=== PATIENT | female | born 1945 | race Caucasian/White ===

== ENCOUNTER 2020-05-29 15:37 | Outpatient (CLI) | payer MEDICARE, SELFPAY ==
--- NOTE | 2020-05-29 15:45 | MM_ITS ---
WS: [id number] BILATERAL DIGITAL SCREENING MAMMOGRAPHY WITH CAD CLINICAL INFORMATION: SCREEN HISTORY: Screening mammogram. No current complaints. COMPARISON: TECHNIQUE: Bilateral CC and MLO views. FINDINGS: Scattered fibroglandular densities bilaterally. No suspicious focal mass, asymmetry, calcifications, or architectural distortion. No evidence of malignancy. Punctate,lucent centered, and egg shell calci fications are stable. Stable 6 mm ovoid nodule outer left breast unchanged. MM/[place] [id number] IMPRESSION: BI-RADS: 2-Benign FOLLOW UP: 1 Year Follow-up Recommend return to annual screening mammography.
--- NOTE | 2020-05-29 16:22 | XR_ITS ---
WS: [id number] DEXA (DUAL ENERGY X-RAY ABSORPTIOMETRY) Bone mineral density was performed using a Expanite machine. HISTORY: POSTMENOPAUSAL COMPARISON: 05/24/2018 Lumbar spine BMD (L1-L4): 1.171 g/cm2 T score: -0.1 Z score: 1.5 Total hip BMD: Left: 0.748 g/cm2. T score: -2.1 Z score: -0.5 Right: 0.883 g/cm2. T score: -1.0 Z score: 0.6 10 year probability of a major osteoporotic fracture is 22%. Compared to the prior study from 05/24/2018. Lumbar spine bone mineral density has increased by 1.9%. Bilateral hips bone mineral density has decreased by 6.1%. XR/XR DEXA axial skeleton* [id number] IMPRESSION: Osteopenia based upon the WHO classification for females. Significant decrease in bone mineral density in the hips since the prior study.
== END 2020-05-29 15:38 | disposition home or self-care (01) ==
PROVIDERS: PCP Physician Assistant; Visit Provider Physician Assistant
DX: Z12.31 Encounter for screening mammogram for malignant neoplasm of breast (principal); Z78.0 Asymptomatic menopausal state
CPT/HCPCS: 77067; 77080

== ENCOUNTER 2024-05-18 13:49 | Outpatient (CLI) | payer MEDICARE, SELFPAY ==
--- NOTE | 2024-05-18 13:54 | CT_ITS ---
WS: [id number] CT HEAD TECHNIQUE: Noncontrast CT of the head obtained from the skullbase to the vertex. CLINICAL INFORMATION: INJURY OF HEAD COMPARISON: 2018 DLP: 1688.[address] scans at [facility] use at least one of these dose optimization techniques: automated e xposure control; mA and/or kV adjustment per patient size (includes targeted exams where dose is matc hed to clinical indication); or iterative reconstruction. FINDINGS: No evidence of intracranial hemorrhage or mass effect. Ventricular system and basal cisterns are butcher nt. Mild small vessel changes with moderate parenchymal volume loss worse in the frontal lobes. No ex tra-axial fluid collections. No evidence of mass or mass effect. Paranasal sinuses and mastoid air cells are well aerated. .Normal visualized soft tissues. CT/CT head wo con* [id number] IMPRESSION: 1. No evidence of intracranial hemorrhage or mass effect. 2. Mild small vessel changes with moderate parenchymal volume loss worse in th e frontal lobes. 3. No acute intracranial findings.
--- NOTE | 2024-05-18 13:54 | CT_ITS ---
WS: [id number] CT FACIAL BONES TECHNIQUE: Noncontrast facial bones with coronal and sagittal reformatted images. CLINICAL INFORMATION: INJURY OF HEAD COMPARISON: None. DLP: 1688.[address] scans at [facility] use at least one of these dose optimization techniques: automated e xposure control; mA and/or kV adjustment per patient size (includes targeted exams where dose is matc hed to clinical indication); or iterative reconstruction. FINDINGS: Paranasal sinuses are well aerated. Mucosal thickening in the ethmoid air cells. Small calcified oste carmen in the anterior LEFT ethmoid air cells. Soft tissue induration and hematoma involving the RIGHT f acial subcutaneous fat. Zygoma appear intact. Anterior nasal bones are normal. Normal pterygoid plate s. No evidence of mandibular fracture or dislocation. Mild central canal stenosis in the upper cervic al spine with disc osteophyte complex at C3-C4 with slight contact of the cervical cord. Slight anter olisthesis C4 on C5 and C5 on C6. Normal posterior nasopharynx. Lateral orbits are normal in appearance. No acute orbital fractures. No rmal lamina papyracea. CT/CT facial bones wo con* [id number] IMPRESSION: 1. No acute facial fractures. 2. Soft tissue contusion RIGHT facial subcutaneous fat. 3. Spondylitic changes cervical spine with mild central canal stenosis C3-C4 w ith disc osteophyte complex and slight contact of the cervical cord. This could be further evaluated with MRI cervical spine or CT.
== END 2024-05-18 13:50 | disposition home or self-care (01) ==
LOC: RAD 13:51
PROVIDERS: PCP Physician Assistant; Visit Provider Physician Assistant
DX: S00.83XA Contusion of other part of head, initial encounter (principal); X58.XXXA Exposure to other specified factors, initial encounter; G31.89 Other specified degenerative diseases of nervous system; M47.812 Spondylosis without myelopathy or radiculopathy, cervical region; M25.78 Osteophyte, vertebrae
CPT/HCPCS: 70450; 70486

== ENCOUNTER 2024-10-19 14:56 | Observation (INO) | payer MEDICARE, SELFPAY ==
[2024-10-19] VITALS (17 sets, daily range): BP systolic 113–154; BP diastolic 49–92; PULSE 80–87; RESP 16–18; TEMP 36.2–37.1; O2SAT 92–98; BMI 33.8; BMI 34.9
--- NOTE | 2024-10-19 14:58 | XR_ITS ---
WS: [id number] Portable AP upright chest, 10/19/2024 Clinical Data: weakness Comparison: PA chest, 07/04/2018 Findings: There are minimal patchy opacities in the lower lobes, more on the left than the right which probably represent atelectasis rather than pneumonia. No nodules, masses or effusions are seen. The heart is normal. The pulmonary vascularity is not increased. No pneumonia or pneumothorax is seen. The aortic arch and descending thoracic aorta show calcification and tortuosity. There is deformity of the right humeral head probably from old trauma. XR/XR chest 1V portable [id number] Impression: 1. Patchy opacities in both lower lobes which probably represents atelectasis r ather than pneumonia. 2. Atherosclerosis.
--- NOTE | 2024-10-19 15:14 | ECG_ITS ---
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 Measurements Intervals [place] Rate: 84 P: 53 ME: 159 QRS: -44 QRSD: 149 T: 17 QT: 409 QTc: 486 Interpretive Statements SINUS RHYTHM POSSIBLE LEFT ATRIAL ENLARGEMENT [-0.1mV P-WAVE IN V1/V2] LEFT AXIS DEVIATION [QRS AXIS < -30] RIGHT BUNDLE BRANCH BLOCK [120+ ms QRS DURATION, UPRIGHT V1, 40+ ms S IN I/aVL/V4/V5/V6] POSSIBLE LEFT VENTRICULAR HYPERTROPHY [VOLTAGE CRITERIA PLUS LAE OR QRS WIDENING] POSSIBLE SEPTAL MYOCARDIAL INFARCTION , PROBABLY OLD [30 ms Q WAVE IN V1/V2] Compared to ECG 07/04/2018 14:10:05 Myocardial infarct finding now present ST (T wave) deviation no longer present Electronically Signed On 10-21-2024 07:51:44 MATERNAL FETAL PHYSICIAN by Manas Gardner M.D. [id number] [id number]
[2024-10-19 15:23] LABS: Glucose Point of Care 263 mg/dL (70-110)
--- NOTE | 2024-10-19 16:19 | W.ED.RECABL ---
HPI - Recheck/Abnormal Lab/Rx General: Chief Complaint: Recheck/Abnormal Lab/Rx Stated Complaint: polo ramirez sent, weakness, shakes Time Seen by Provider: 10/19/24 16:04 Source: patient Mode of arrival: ambulatory Limitations: no limitations History of Present Illness: 79-year-old female states she has been having generalized fatigue and feeling quite weak really over the last couple weeks. States has been worse over the last few days she is concerned that she may be getting anemic she is sent here by her PCP patient is a diabetic she denies any pain anywhere denies any fevers. Related Data Home Medications ?Medication ?Instructions ?Recorded ?Confirmed amlodipine 5 mg tablet 5 mg PO DAILY 10/19/24 10/19/24 aripiprazole 2 mg tablet 2 mg PO DAILY 10/19/24 10/19/24 buspirone 30 mg tablet 30 mg PO BID 10/19/24 10/19/24 escitalopram oxalate 20 mg tablet 20 mg PO DAILY 10/19/24 10/19/24 furosemide 40 mg tablet 40 mg PO DAILY 10/19/24 10/19/24 gabapentin 300 mg capsule 300 mg PO BID 10/19/24 10/19/24 glipizide 5 mg tablet, extended 5 mg PO DAILY 10/19/24 10/19/24 release 24 hr levothyroxine 75 mcg tablet 75 mcg PO DAILY 10/19/24 10/19/24 lisinopril 20 1 tab PO DAILY 10/19/24 10/19/24 mg-hydrochlorothiazide 12.5 mg tablet omeprazole 20 mg capsule,delayed 20 mg PO DAILY 10/19/24 10/19/24 release potassium chloride 10 mEq 10 meq PO DAILY 10/19/24 10/19/24 tablet,extended release rosuvastatin 20 mg tablet 20 mg PO DAILY 10/19/24 10/19/24 trazodone 50 mg tablet 50 mg PO BEDTIME 10/19/24 10/19/24 Allergies Allergy/AdvReac Type Severity Reaction Status Date / Time codeine Allergy Unknown Unknown Verified 10/19/24 15:23 Penicillins Allergy Unknown Unknown Verified 10/19/24 15:23 Review of Systems Const: Reports: fatigue and malaise; Denies: fever(s), chills, body aches or change in appetite ENMT: Denies: throat pain or dental pain Card: Denies: chest pain Resp: Denies: dyspnea GI: Denies: abdominal pain, nausea, vomiting or diarrhea : Denies: dysuria Musc: Denies: neck pain or back pain Skin/Breast: Denies: rash Neuro: Denies: headache(s) Physical Exam Const: COMMON NORMALS: patient oriented x3 HENMT: COMMON NORMALS: normocephalic and atraumatic HEAD & SCALP: normocephalic and atraumatic Eye: COMMON NORMALS: Equal, round and reactive pupils present and EOMs intact bilaterally PUPIL: Yes Equal, round and reactive pupils present Neck/C-Spine: COMMON NORMALS: full ROM and supple Chest: COMMONS NORMALS: normal inspection of the chest and normal palpation of entire chest wall Resp: COMMON NORMALS: normal respiratory effort, No retractions, No use of accessory muscles and clear to auscultation bilaterally AUSCULTATION: clear to auscultation bilaterally Cardio: COMMON NORMALS: regular rate, regular rhythm and No murmurs present (Cardio) RATE: regular rate RHYTHM: regular rhythm GI: COMMON NORMALS: Normal to inspection, nondistended, normoactive bowel sounds present, Soft to palpation, non-tender and no masses PALPATION: Yes Soft to palpation Extremity: COMMON NORMALS: normal to inspection and full ROM Neuro: COMMON NORMALS: patient oriented x3, moves all extremities and no focal motor deficits Psych: COMMON NORMALS: mental status grossly normal, Normal thought process present and cooperative THOUGHT PROCESS: Normal thought process present Skin: COMMON NORMALS: no rashes or lesions noted and no wounds GENERAL SKIN EXAM: no rashes or lesions noted Course Vital Signs: Vital signs: Vital Signs Temperature 97.9 F 10/19/24 15:09 Pulse Rate 82 10/19/24 15:09 Blood Pressure 128/59 10/19/24 15:09 Pulse Oximetry 95 10/19/24 15:09 Oxygen Delivery Me thod Room Air 10/19/24 15:09 MDM - Recheck/Abnormal Lab/Rx Medical Decision Making Patient presents here with generalized weakness she is found to be anemic hemoglobin is 5.2 likely an iron deficiency anemia I am transfusing her spoke to the hospitalist will admit at this time. Medical Records I reviewed the patient's medical records. Lab Data I reviewed the patient's lab results. 10/19/24 16:19 10/19/24 17:02 Radiology Impressions Chest X-Ray 10/19/24 14:58 Impression: 1. Patchy opacities in both lower lobes which probably represents atelectasis rather than pneumonia. 2. Atherosclerosis. Laboratory Results WBC 9.73 10^3/uL (3.29-11.43) 10/19/24 16:19 RBC 2.93 10^6/uL (3.85-5.65) L 10/19/24 16:19 Hgb 5.20 g/dL (11.27-16.99) L* 10/19/24 16:19 Hct 20.8 % (36-47) L* 10/19/24 16:19 MCV 71.0 fl (85-98) L 10/19/24 16:19 MCH 17.7 pg (27-33) L 10/19/24 16:19 MCHC 25.0 g/dL (30-55) L 10/19/24 16:19 RDW 22.0 % (12.1-15.1) H 10/19/24 16:19 Plt Count 453 10^3/cmm (157-399) H 10/19/24 16:19 MPV 10.7 fL (7.4-10.4) H 10/19/24 16:19 Neut % (Auto) 68.3 % 10/19/24 16:19 Lymph % (Auto) 19.3 % 10/19/24 16:19 [place] % (Auto) 8.2 % 10/19/24 16:19 Eos % (Auto) 3.0 % 10/19/24 16:19 Baso % (Auto) 0.6 % 10/19/24 16:19 Neut # (Auto) 6.64 10^3/uL (1.8-7.7) 10/19/24 16:19 Lymph # (Auto) 1.9 10^3/uL (0.8-4.8) 10/19/24 16:19 [place] # (Auto) 0.8 10^3/uL (0.2-0.9) 10/19/24 16:19 Eos # (Auto) 0.3 10^3/uL (0.0-0.8) 10/19/24 16:19 Baso # (Auto) 0.1 10^3/uL (0.0-0.1) 10/19/24 16:19 Nucleated RBC % (auto) 0.6 % 10/19/24 16:19 Nucleated RBCs # 0.1 /100WBC 10/19/24 16:19 Sodium 130 mmol/L (136-145) L 10/19/24 17:02 Potassium 3.9 mmol/L (3.5-5.1) 10/19/24 17:02 Chloride 93 mmol/L (98-107) L 10/19/24 17:02 Carbon Dioxide 25 mmol/L (22-29) 10/19/24 17:02 Anion Gap 15.9 (5-19) 10/19/24 17:02 BUN 20 mg/dL (8-23) 10/19/24 17:02 Creatinine 0.8 mg/dL (0.5-0.9) 10/19/24 17:02 GFR Calculation Not Reportable 10/19/24 17:02 Glucose 214 mg/dL (65-115) H 10/19/24 17:02 POC Glucose 263 mg/dL (70-110) H 10/19/24 15:21 Calculated Osmolality 279 mOsm/kg (285-295) L 10/19/24 17:02 Calcium 9.1 mg/dL (8.5-10.5) 10/19/24 17:02 Magnesium 1.8 mg/dL (1.7-2.3) 10/19/24 17:02 Iron 16 ug/dL (37-145) L 10/19/24 17:02 TIBC 389 mcg/dl 10/19/24 17:02 % Saturation 4.1 % (20-50) L 10/19/24 17:02 Unsat Iron Binding 373 ug/dL (112-347) H 10/19/24 17:02 Total Bilirubin 0.5 mg/dL (0.15-1.2) 10/19/24 17:02 AST 18 U/L (0-32) 10/19/24 17:02 ALT 6 U/L (0-33) 10/19/24 17:02 Alkaline Phosphatase 83 U/L (35-105) 10/19/24 17:02 Total Protein 7.4 g/dL (6.6-8.7) 10/19/24 17:02 Albumin 3.5 g/dL (3.5-5.2) 10/19/24 17:02 Globulin 3.9 g/dL (1.3-4.6) 10/19/24 17:02 TSH 1.32 uIU/mL (0.27-4.20) 10/19/24 17:02 All radiology interpretation(s) finalized by discharge EKG Data EKG 1: I personally reviewed and interpreted this EKG as follows: EKG interpretation date: 10/19/24 EKG interpretation time: 15:14 Interpretation: nsr hr [address] elevation qrs 149 qtc 450 Discharge Plan Discharge Condition: Stable Prescriptions: No Action furosemide 40 mg tablet 40 mg PO DAILY trazodone 50 mg tablet 50 mg PO BEDTIME lisinopril-hydrochlorothiazide 20-12.5 mg tablet 1 tab PO DAILY glipizide 5 mg tablet extended release 24hr 5 mg PO DAILY potassium chloride 10 mEq tablet extended release 10 meq PO DAILY amlodipine 5 mg tablet 5 mg PO DAILY levothyroxine 75 mcg tablet 75 mcg PO DAILY buspirone 30 mg tablet 30 mg PO BID gabapentin 300 mg capsule 300 mg PO BID omeprazole 20 mg capsule,delayed release(DR/EC) 20 mg PO DAILY escitalopram oxalate 20 mg tablet 20 mg PO DAILY rosuvastatin 20 mg tablet 20 mg PO DAILY aripiprazole 2 mg tablet 2 mg PO DAILY Referrals: Polo Ramirez PA [Primary Care Provider] - Print Language: Dominican Coding Level of Care Code ED Speeder Hand for Darwin Jones
[2024-10-19 16:27] LABS: Basophils # 0.1 10^3/uL (0.0-0.1); Basophils % 0.6 %; Eosinophils # 0.3 10^3/uL (0.0-0.8); Lymphocytes # 1.9 10^3/uL (0.8-4.8); Lymphocytes % 19.3 %; Mean Corpuscular Hemoglobin 17.7 pg (27-33); Mean Platelet Volume 10.7 fL (7.4-10.4); Monocytes # 0.8 10^3/uL (0.2-0.9); Monocytes % 8.2 %; Neutrophils # 6.64 10^3/uL (1.8-7.7); Neutrophils % 68.3 %; Nucleated Red Blood Cells # 0.1 /100WBC; Nucleated Red Blood Cells % 0.6 %; Platelet Count 453 10^3/cmm (157-399); Red Blood Count 2.93 10^6/uL (3.85-5.65); White Blood Count 9.73 10^3/uL (3.29-11.43)
[2024-10-19 16:45] LABS: Hematocrit 20.8 % (36-47)
[2024-10-19 18:16] LABS: Alanine Aminotransferase 6 U/L (0-33); Albumin Level 3.5 g/dL (3.5-5.2); Alkaline Phosphatase 83 U/L (35-105); Anion Gap 15.9 (5-19); Aspartate Amino Transferase 18 U/L (0-32); Blood Urea Nitrogen 20 mg/dL (8-23); Calcium 9.1 mg/dL (8.5-10.5); Carbon Dioxide 25 mmol/L (22-29); Chloride 93 mmol/L (98-107); Creatinine Clr Calc Pharmacy 55.9546; Globulin 3.9 g/dL (1.3-4.6); Glucose 214 mg/dL (65-115); Iron 16 ug/dL (37-145); Magnesium 1.8 mg/dL (1.7-2.3); Osmolality Calculated 279 mOsm/kg (285-295); Percent Saturation 4.1 % (20-50); Potassium 3.9 mmol/L (3.5-5.1); Sodium 130 mmol/L (136-145); Thyroid Stimulating Hormone 1.32 uIU/mL (0.27-4.20); Total Bilirubin 0.5 mg/dL (0.15-1.2); Total Iron Binding Capacity 389 mcg/dl; Total Protein 7.4 g/dL (6.6-8.7); Unsaturated Iron Binding 373 ug/dL (112-347)
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
[2024-10-19 19:18] LABS: Influenza A NEGATIVE (Negative); Influenza B NEGATIVE (Negative); Respiratory Syncytial Virus Ce NEGATIVE (Negative); SARS-CoV-2 PCR NEGATIVE (Negative)
[2024-10-19 19:26] LABS: Ferritin 8 ng/mL (15-150)
[2024-10-19 19:44] LABS: Bilirubin Urine Negative (Negative); Blood Urine Negative (Negative); Glucose Urine UA Negative (Normal); Ketones Urine Negative (Negative); Leukocyte Esterase Urine Negative (Negative); Nitrate Urine Negative (Negative); Protein Urine Trace (Negative); Specific Gravity, Urine 1.004 (1.005-1.030); Urine Appearance Clear (CLEAR); Urine Color Yellow (Yellow); pH Urine 6.5 (5-7)
[2024-10-19 20:15] LABS: Add Urine Microscopic? YES; Squamous Epithelial Cell Urine 0-4 /hpf (0-5)
[2024-10-19] MEDS: trazodone 50 mg Tablet PO (22:05)
[2024-10-19] MEDS: efferdent effervescent 1 EACH DENTAL (22:05)
[2024-10-19] MEDS: pantoprazole DR 40 mg Tablet PO (22:05)
[2024-10-20 03:29] VITALS: BP 124/89; PULSE 84; RESP 17; TEMP 37; O2SAT 94
[2024-10-20 05:01] LABS: Basophils # 0.1 10^3/uL (0.0-0.1); Basophils % 0.9 %; Eosinophils # 0.5 10^3/uL (0.0-0.8); Eosinophils % 5.8 %; Hematocrit 27.1 % (36-47); Lymphocytes # 1.6 10^3/uL (0.8-4.8); Lymphocytes % 19.2 %; Mean Corpuscular HGB Conc 27.7 g/dL (30-55); Mean Corpuscular Hemoglobin 20.8 pg (27-33); Mean Corpuscular Volume 75.3 fl (85-98); Mean Platelet Volume 10.7 fL (7.4-10.4); Monocytes # 0.8 10^3/uL (0.2-0.9); Monocytes % 9.6 %; Neutrophils # 5.25 10^3/uL (1.8-7.7); Neutrophils % 63.9 %; Nucleated Red Blood Cells # 0.1 /100WBC; Nucleated Red Blood Cells % 0.6 %; Platelet Count 373 10^3/cmm (157-399); Red Cell Distribution Width 21.2 % (12.1-15.1); White Blood Count 8.22 10^3/uL (3.29-11.43)
[2024-10-20 05:19] LABS: Slide Review Slide Review Perform
[2024-10-20 05:26] LABS: Alanine Aminotransferase 7 U/L (0-33); Albumin Level 3.3 g/dL (3.5-5.2); Alkaline Phosphatase 78 U/L (35-105); Aspartate Amino Transferase 21 U/L (0-32); Blood Urea Nitrogen 16 mg/dL (8-23); Calcium 9.3 mg/dL (8.5-10.5); Carbon Dioxide 23 mmol/L (22-29); Chloride 97 mmol/L (98-107); Creatinine Clr Calc Pharmacy 54.5258; Globulin 4.3 g/dL (1.3-4.6); Glucose 277 mg/dL (65-115); Magnesium 1.8 mg/dL (1.7-2.3); Osmolality Calculated 285 mOsm/kg (285-295); Sodium 132 mmol/L (136-145); Total Bilirubin 0.5 mg/dL (0.15-1.2); Total Protein 7.6 g/dL (6.6-8.7)
[2024-10-20 05:29] LABS: Anion Gap 16.3 (5-19); Potassium 4.3 mmol/L (3.5-5.1)
[2024-10-20 06:22] LABS: Glucose Point of Care 269 mg/dL (70-110)
[2024-10-20 08:02] VITALS: BP 173/77; PULSE 80; RESP 18; TEMP 36.5; O2SAT 93
[2024-10-20 09:31] VITALS: BP 144/68; PULSE 90; RESP 18; TEMP 36.8
[2024-10-20] MEDS: pantoprazole DR 40 mg Tablet PO (09:33)
[2024-10-20] MEDS: atorvastatin 40 mg Tablet PO (09:33)
[2024-10-20] MEDS: hydroCHLOROthiazide 25 mg Tablet 12.5 MG PO (09:33)
[2024-10-20] MEDS: lisinopril 20 mg Tablet PO (09:34)
[2024-10-20] MEDS: potassium chloride ER 10 mEq Tablet PO (09:34)
[2024-10-20] MEDS: gabapentin 300 mg Capsule PO (09:34)
[2024-10-20] MEDS: BuSPIRONE 10 mg Tablet 30 MG PO (09:34)
[2024-10-20] MEDS: levothyroxine 75 mcg Tablet PO (09:34)
[2024-10-20] MEDS: ARIPiprazole 2 mg Tablet PO (09:34)
[2024-10-20] MEDS: amlodipine 5 mg Tablet PO (09:34)
[2024-10-20] MEDS: escitalopram 10 mg Tablet 20 MG PO (09:34)
[2024-10-20] MEDS: FUROsemide 40 mg Tablet PO (09:36)
[2024-10-20 11:49] LABS: Glucose Point of Care 301 mg/dL (70-110)
[2024-10-20 12:00] VITALS: BP 184/65; PULSE 108; RESP 19; TEMP 36.8; O2SAT 91
[2024-10-20] MEDS: iron sucrose 200 MG in sodium chloride 0.9% (100 ml) 100 ML 220 MG IV (12:05)
[2024-10-20] MEDS: nystatin powder 15 gm Btl 1 APPLIC TOPICAL (12:05)
[2024-10-20] MEDS: insulin lispro 100 unit/1 mL SUBCUT (12:06)
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
[2024-10-20 15:18] VITALS: BP 184/65; PULSE 108; RESP 19; TEMP 36.7; O2SAT 91
== END 2024-10-20 15:20 | disposition home or self-care (01) ==
LOC: ER 16:19 → MEDSURG 20:00
PROVIDERS: Admitting Provider Internal Medicine; Emergency Provider Emergency Medicine; PCP Physician Assistant; Visit Provider Internal Medicine
DX: D50.9 Iron deficiency anemia, unspecified (principal); E87.1 Hypo-osmolality and hyponatremia; E86.0 Dehydration; Z79.899 Other long term (current) drug therapy; Z79.890 Hormone replacement therapy; Z88.5 Allergy status to narcotic agent; Z88.2 Allergy status to sulfonamides; I10 Essential (primary) hypertension; G47.00 Insomnia, unspecified; Z90.49 Acquired absence of other specified parts of digestive tract; Z90.710 Acquired absence of both cervix and uterus; Z87.891 Personal history of nicotine dependence; Z11.52 Encounter for screening for COVID-19; R09.02 Hypoxemia; E87.8 Other disorders of electrolyte and fluid balance, not elsewhere classified; E11.65 Type 2 diabetes mellitus with hyperglycemia
CPT/HCPCS: 36415; 36416; 36430; 71045; 80053; 81001; 82728; 82962; 83540; 83550; 83735; 84100; 84443; 85014; 85018; 85025; 86850; 86900; 86920; 87637; 93005; 96372; G0378; J1756; J1815; P9016; P9040

== ENCOUNTER → 2024-10-26 10:49 | Outpatient (BNVA) | payer MEDICARE, SELFPAY | PROVIDERS: PCP Physician Assistant; Visit Provider Surgery | DX: D50.9 Iron deficiency anemia, unspecified (principal) | CPT/HCPCS: 99204 ==

== ENCOUNTER → 2024-11-08 13:16 | Outpatient (BNVA) | payer MEDICARE, SELFPAY | PROVIDERS: PCP Physician Assistant; Referring Provider Physician Assistant; Visit Provider Surgery | DX: E61.1 Iron deficiency (principal) | CPT/HCPCS: 99214 ==

== ENCOUNTER 2024-11-29 06:51 | Day surgery (SDC) | payer MEDICARE, SELFPAY ==
--- NOTE | 2024-11-29 06:04 | P.HPUD_ITS ---
Surgery/Procedure H&P Update DATE OF PROCEDURE: November 29, 2024 DATE H&P PERFORMED: 11/08/24 H&P UPDATE INFORMATION: I have reviewed H&P completed within last 30 days, I have examined patient prior to procedure, No changes to prior documentation, H&P is in [facility] EMR on date indicated and Risks and benefits of the procedure reviewed PLANNED PROCEDURE: Operation Date: 11/29/24 08:20 Proposed Procedures p EGD [id number] G0105 D50.9 E61.1(Not Applicable) - Woodrow Gomez MD s Colonoscopy(Not Applicable) - Woodrow Gomez MD
[2024-11-29 07:16] VITALS: BP 155/82; PULSE 88; RESP 16; TEMP 36.2; O2SAT 93; BMI 33.0
[2024-11-29 07:26] LABS: Glucose Point of Care 179 mg/dL (70-110)
[2024-11-29] MEDS: sodium chloride 0.9% 1,000 ML 15 ML IV (07:26)
--- NOTE | 2024-11-29 07:44 | ANES.PREANE2 ---
Pre-Anesthetic Assessment Height/Weight: Height 5 ft Weight 169 lb Temp Pulse Resp BP Pulse Ox O2 Del Method 97.2 F L 88 16 155/82 93 Room Air 11/29/24 07:16 11/29/24 07:16 11/29/24 07:16 11/29/24 07:16 11/29/24 07:16 11/29/24 07:16 Preop Diagnosis: GI bleed follow-up Operation Date: 11/29/24 08:20 Proposed Procedures p EGD [id number] G0105 D50.9 E61.1(Not Applicable) - Woodrow Gomez MD s Colonoscopy(Not Applicable) - Woodrow Gomez MD Was Beta Daniel taken within 24 hours: N/A Was Clonidine taken within 24 hours: N/A Last intake: Intake Last Liquid Date 11/28/24 Last Liquid Time 20:00 Last Solid Date 11/27/24 Last Solid Time 17:00 Social No alcohol and No tobacco Quit smoking in April Exam alert, oriented x 3 and regular rate & rhythm Diminished breath sounds bilaterally Airway Submandibular: within normal limits Cervical ROM: within normal limits Mallampati: Class III Comments: Comments: Edentulous Anesthetic Plan ASA status: 3 Anesthesia: MAC Other: Patient states that she gets nauseous after every anesthesia. However, prior colonoscopy without problems Completed bowel prep Prior GI bleed in September of this year. Follow-up hemoglobin 10.2 History of hypertension, EKG showing sinus rhythm with RBBB Quit smoking in April Type 2 diabetes, Ozempic last taken 11/19/2024. BS 179 today Plan for MAC anesthesia Medications/Allergies Home Medications ?Medication ?Instructions ?Recorded ?Confirmed ?Last Taken ?Type amlodipine 5 mg tablet 5 mg PO DAILY 10/19/24 11/29/24 11/28/24 History aripiprazole 2 mg tablet 2 mg PO DAILY 10/19/24 11/29/24 11/28/24 History buspirone 30 mg tablet 30 mg PO BID 10/19/24 11/29/24 11/28/24 History escitalopram oxalate 20 mg tablet 20 mg PO DAILY 10/19/24 11/29/24 11/28/24 History furosemide 40 mg tablet 40 mg PO DAILY 10/19/24 11/29/24 11/28/24 History gabapentin 300 mg capsule 300 mg PO BID 02/11/29/24 11/28/24 History levothyroxine 75 mcg tablet 75 mcg PO DAILY 10/19/24 11/29/24 11/29/24 History potassium chloride 10 mEq 10 meq PO DAILY 10/19/24 11/29/24 11/28/24 History tablet,extended release rosuvastatin 20 mg tablet (Crestor) 20 mg PO DAILY 10/19/24 11/29/24 11/28/24 History trazodone 50 mg tablet 50 mg PO BEDTIME 10/19/24 11/29/24 11/28/24 History ferrous sulfate 325 mg (65 mg 325 mg PO DAILY #30 tabs 10/20/24 11/29/24 11/28/24 Rx iron) tablet,delayed release glipizide 5 mg tablet, extended 10 mg (2 x 5 mg) PO DAILY #60 tabs 10/20/24 11/29/24 11/28/24 Rx release 24 hr acarbose 25 mg tablet 25 mg PO QDAY 11/08/24 11/29/24 11/28/24 History ondansetron 8 mg disintegrating 8 mg PO Q8H PRN nausea and 11/08/24 11/29/24 11/29/24 Rx tablet vomiting #3 tabs semaglutide 0.25 mg or 0.5 mg (2 1.5 mg SUBCUT DIRECTED 11/08/24 11/29/24 11/19/24 History mg/3 mL) subcutaneous pen injector (Ozempic) Allergies Allergy/AdvReac Type Severity Reaction Status Date / Time codeine Allergy Unknown Unknown Verified 11/29/24 07:15 Penicillins Allergy Unknown Unknown Verified 11/29/24 07:15 venom-wasp Allergy Unknown Anaphylaxis Verified 11/29/24 07:15 Current Medications Generic Name Dose Route Start Last Admin Trade Name Freq PRN Reason Stop Dose Admin Sodium Chloride 1,000 mls @ 15 mls/hr 11/29/24 07:06 11/29/24 07:26 Sodium Chloride 0.9% IV 11/30/24 07:05 15 mls/hr .Q24H PRN Administration COLONOSCOPY FLUIDS PFSH Anesthesia Medical History Anemia Insomnia Hypertension Type 2 diabetes mellitus Surgical History History of hysterectomy History of cholecystectomy Amputation of leg Family History Sister Carotid artery disease Social History Smoking and tobacco/nicotine status: never used tobacco/nicotine Alcohol intake: never Substance/Drug Use: never Data Anesthesia Cardiac Studies: No Data to Display
[2024-11-29 08:35] VITALS: BP 134/65; PULSE 75; RESP 16; TEMP 36.7; O2SAT 93
[2024-11-29 08:40] VITALS: BP 143/76; PULSE 73; RESP 16; O2SAT 92
[2024-11-29 08:51] VITALS: BP 167/74; PULSE 80; RESP 16; O2SAT 90
[2024-11-29 09:01] VITALS: BP 159/76; PULSE 76; RESP 18; O2SAT 90
--- NOTE | 2024-11-29 09:26 | ANE.PACU2 ---
Inpatient post-anesthesia follow up: Airway intact: Yes Vital signs: Temperature 98.0 F Pulse Rate 76 Respiratory Rate 18 Blood Pressure 159/76 Pulse Oximetry 90 Oxygen Delivery Me thod Room Air Oxygen Flow Rate Fraction of Inspir ed Oxygen Hydration adequate: Yes Nausea and vomiting: No Pain level: 1 Mental status: Baseline
== END 2024-11-29 09:26 | disposition home or self-care (01) ==
PROVIDERS: PCP Physician Assistant; Visit Provider Surgery
PROC: 0DJ08ZZ Inspection of Upper Intestinal Tract, Via Natural or Artificial Opening Endoscopic (ICD-10-PCS; principal; 2024-11-29 08:20)
PROC: 0DJD8ZZ Inspection of Lower Intestinal Tract, Via Natural or Artificial Opening Endoscopic (ICD-10-PCS; CPT 45378; 2024-11-29 08:20)
DX: K57.31 Diverticulosis of large intestine without perforation or abscess with bleeding (principal); K64.8 Other hemorrhoids; K62.1 Rectal polyp; D50.9 Iron deficiency anemia, unspecified; I10 Essential (primary) hypertension; Z87.891 Personal history of nicotine dependence; E11.9 Type 2 diabetes mellitus without complications; K29.50 Unspecified chronic gastritis without bleeding; Z79.85 Long-term (current) use of injectable non-insulin antidiabetic drugs; I45.10 Unspecified right bundle-branch block; Z79.899 Other long term (current) drug therapy; Z79.84 Long term (current) use of oral hypoglycemic drugs; Z79.890 Hormone replacement therapy; Z88.5 Allergy status to narcotic agent; Z88.0 Allergy status to penicillin; K29.00 Acute gastritis without bleeding; K29.80 Duodenitis without bleeding
CPT/HCPCS: 36416; 43239; 45380; 82962; 88305; 88342; J2704; J7030

== ENCOUNTER → 2024-12-12 14:17 | Outpatient (BNVA) | payer MEDICARE, SELFPAY | PROVIDERS: PCP Physician Assistant; Visit Provider Surgery | DX: Z09 Encounter for follow-up examination after completed treatment for conditions other than malignant neoplasm (principal) | CPT/HCPCS: 99213 ==

== ENCOUNTER 2025-05-01 14:24 | Outpatient (CLI) | payer MEDICARE, SELFPAY ==
--- NOTE | 2025-05-01 14:29 | MM_ITS ---
WS: [id number] BILATERAL 3D TOMOSYNTHESIS DIGITAL SCREENING MAMMOGRAPHY WITH CAD CLINICAL INFORMATION: SCREENING HISTORY: Screening mammogram. No current complaints. COMPARISON: 2020 TECHNIQUE: Bilateral CC and MLO views. FINDINGS: Scattered fibroglandular densities bilaterally. No suspicious focal mass, asymmetry, calcifications, or architectural distortion. No evidence of malignancy. Bilateral dystrophic, eggshell, and lucent centered calcifications. MM/MM scr tomosynthesis [id number] IMPRESSION: DENSITY: There are scattered areas of fibroglandular density. BI-RADS: 2 - Benign. FOLLOW UP: 1 Year Follow-up Recommend return to annual screening mammography.
== END 2025-05-01 14:25 | disposition home or self-care (01) ==
LOC: RAD 14:26
PROVIDERS: PCP Physician Assistant; Visit Provider Physician Assistant
DX: Z12.31 Encounter for screening mammogram for malignant neoplasm of breast (principal); R92.323 Mammographic fibroglandular density, bilateral breasts; R92.1 Mammographic calcification found on diagnostic imaging of breast
CPT/HCPCS: 77063; 77067